=== PATIENT | female | born 1985 | race Caucasian/White ===

== ENCOUNTER 2017-03-01 23:29 | Emergency (ER) | payer OTHER ==
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
[~2017-03-01 23:29] MED LIST: ADVIL100 MG PO; BACTRIM DS TABL1 TA1 PO; CIPRO PO; COLACE50 MG PO; DIFLUCAN100 MG PO; FLAGYL PO; FLEXERIL PO; FLEXERIL10 M1 PO; FLEXERIL10 MG PO; IBUPROFEN PO; IMODIUM2 MG PO; LORTAB 7.5-5001 TAB PO; NASONEX17 GM; NORCO 5/325 TAB1 TAB PO; ORUDIS75 M1 PO; PERCOCET5/325 PO; PHENERGAN PO; PREDNISONE PO; VICODIN PO
== END 2017-03-02 05:30 | disposition home or self-care (01) ==
LOC: CED 23:29
DX: S12.301A Unspecified nondisplaced fracture of fourth cervical vertebra, initial encounter for closed fracture (principal); F17.200 Nicotine dependence, unspecified, uncomplicated; V49.40XA Driver injured in collision with unspecified motor vehicles in traffic accident, initial encounter; Y92.488 Other paved roadways as the place of occurrence of the external cause
CPT/HCPCS: 70450; 71010; 72125; 72170; 96372; 99285; J2270